=== PATIENT | male | born 1985 | race Caucasian/White ===

== ENCOUNTER 2018-07-18 17:29 | Inpatient (IN) | payer SELFPAY ==
[~2018-07-18] VITALS: Ht 170.2 cm; Wt 90.7 kg
[2018-07-18] MEDS ORDERED: SODIUM CHLORIDE 0.9% 1,000 ML IV ONE (19:00)
[2018-07-18 19:10] LABS: BASOPHILS % 0.3 % (0.0-2.0); EOSINOPHILS % 0.8 % (0.0-5.0); HEMATOCRIT. 45.3 % (42.0-52.0); HEMOGLOBIN. 15.2 g/dL (14.0-18.0); LYMPHOCYTES % 15.3 % (20.0-50.0); MEAN CORPUSCULAR HEMOGLOBIN 30.4 pg (28.0-32.0); MEAN CORPUSCULAR VOLUME 90.7 fL (80.0-94.0); MEAN PLATELET VOLUME 10.2 fl (7.4-10.4); NEUTROPHILS % 74.6 % (40.0-76.0); PLATELET 193 x1000/uL (130-400); RED CELL DISTRIBUTION WIDTH 12.8 % (11.6-14.6)
[2018-07-18 19:18] LABS: CLARITY URINE CLEAR (CLEAR); COLOR URINE DARK YELLOW (YELLOW); KETONES URINE TRACE (NEGATIVE); LEUKOCYTE ESTERASE URINE NEGATIVE (NEGATIVE); NITRITE URINE NEGATIVE (NEGATIVE); OCCULT BLOOD URINE NEGATIVE (NEGATIVE); PH URINE 5.5 (4.5-8.0); PROTEIN URINE 2+ (NEGATIVE); SPECIFIC GRAVITY URINE 1.022 (1.005-1.030)
[2018-07-18 19:21] LABS: CHLORIDE 100 mEq/L (98-107)
[2018-07-18 19:46] LABS: *COCAINE SCREEN URINE NEGATIVE (NEGATIVE); METHADONE URINE SCREEN NEGATIVE (NEGATIVE); OPIATES URINE SCREEN NEGATIVE (NEGATIVE)
[2018-07-18 19:47] LABS: *AMPHETAMINES SCREEN URINE NEGATIVE (NEGATIVE); *BARBITURATES SCREEN URINE NEGATIVE (NEGATIVE); *BENZODIAZEPINES SCREEN URINE NEGATIVE (NEGATIVE); CANNABINOID URINE SCREEN NEGATIVE (NEGATIVE); PHENCYCLIDINE URINE SCREEN NEGATIVE (NEGATIVE)
[2018-07-18 19:52] LABS: HEPATITIS B SURFACE ANTIGEN NEGATIVE
[2018-07-18 20:20] LABS: HEPATITIS B CORE AB IGM NEGATIVE
[2018-07-18 20:22] LABS: HEPATITIS A AB IGM NEGATIVE (NEGATIVE)
[2018-07-18] MEDS ORDERED: PIPERACILLIN/TAZ 2.25G PREMIX 50 ML IV ONE (22:00)
[2018-07-18] MEDS: VANCOMYCIN 1 G PREMIX 200 ML IV SCH (22:53)
[2018-07-19] MEDS: VANCOMYCIN 1 G PREMIX 200 ML IV SCH (00:33)
[2018-07-19] MEDS ORDERED: ACETAMINOPHEN 325MG TABLET PO PRN (11:00)
[2018-07-19] MEDS ORDERED: HYDROCODONE/ACETAMINOPHEN 5/325MG TABLET PO PRN (11:00)
[2018-07-19] MEDS: CLINDAMYCIN 600MG PREMIX 50 ML IV SCH ×2 (11:50→19:31)
[2018-07-19 12:00] VITALS: BP 131/59
[2018-07-19 16:00] VITALS: BP 148/76
[2018-07-19 20:00] VITALS: BP 147/68
[2018-07-20] VITALS: BP 144/70
[2018-07-20 04:00] VITALS: BP 138/87
[2018-07-20] MEDS: CLINDAMYCIN 600MG PREMIX 50 ML IV SCH ×2 (04:39→12:31)
[2018-07-20 07:13] LABS: BASOPHILS % 0.7 % (0.0-2.0); EOSINOPHILS % 2.6 % (0.0-5.0); HEMATOCRIT. 42.3 % (42.0-52.0); HEMOGLOBIN. 14.3 g/dL (14.0-18.0); LYMPHOCYTES % 20.8 % (20.0-50.0); MEAN CORPUSCULAR HEMOGLOBIN 30.8 pg (28.0-32.0); MEAN CORPUSCULAR VOLUME 90.9 fL (80.0-94.0); MEAN PLATELET VOLUME 9.9 fl (7.4-10.4); MONOCYTES % 8.3 % (2.0-8.0); NEUTROPHILS % 67.6 % (40.0-76.0); PLATELET 223 x1000/uL (130-400); RED BLOOD CELL COUNT 4.65 mill/uL (4.7-6.1); RED CELL DISTRIBUTION WIDTH 13.2 % (11.6-14.6)
[2018-07-20 08:00] VITALS: BP 118/67
[2018-07-20 12:00] VITALS: BP 133/61
[2018-07-20 15:25] VITALS: BP 133/61
== END 2018-07-20 16:25 | disposition home or self-care (01) | DRG 383 ==
LOC: ER 17:29 → 6EST 21:42 → ENRESERV 07-19 08:59
PROVIDERS: ADMIT Internal Medicine; ATTEND Internal Medicine
DX: L03.314 Cellulitis of groin (principal); E66.9 Obesity, unspecified; E87.6 Hypokalemia; J98.11 Atelectasis; Z68.31 Body mass index [BMI] 31.0-31.9, adult
CPT/HCPCS: 36415; 71045; 76881; 80053; 80061; 80305; 81003; 83036; 83605; 83880; 84443; 84484; 85025; 85651; 86705; 86709; 86803; 87040; 87077; 87086; 87340; 93005; 93970; 99285; J2543; J3370; J3490; J7030; J7040